=== PATIENT | female | born 1955 | race African-American/Black ===

== ENCOUNTER → 2017-11-08 | Day surgery (SDC) | payer OTHER ==
[~2017-11-08] VITALS: Ht 152.4 cm; Wt 90.7 kg
[~2017-11-08] MED LIST: ASPIRIN EC81 M1 PO; AUGMENTIN 875-1 EACH PO; GABAPENTIN300 M2 PO; IBUPROFEN800 M1 PO; IRBESARTAN-HCT1 EACH PO; KEFLEX500 M1 PO; KLOR-CON 88 ME1 PO; LAMISIL AT30 GM TOP; NEURONTIN300 M1 PO; PERCOCET 5-3251 EACH PO; PREDNISONE50 M1 PO; TRAMADOL HCL50 M1 PO; TYLENOL WITH C1 EACH PO; ULTRAM50 M1 PO; ZOFRAN ODT4 M1 SL
--- NOTE | 2017-11-08 11:34 | Operative Report ---
Operative/Inv Procedure Report Surgery Date: 11/08/17 Name of Procedure: Release carpal tunnel left Pre-Operative Diagnosis: Carpal tunnel syndrome left Post-Operative Diagnosis: Same Estimated Blood Loss: scant Surgeon/Pipe Organ Mechanic Apprentice: Mitesh Mariee MD Anesthesia: moderate sedation Operative/Procedure Note Note: Patient was counseled extensively in regards to the procedure the alternatives the risks and expected outcomes as relates to her request for surgical intervention to treat symptomatic carpal tunnel syndrome. No guarantees were given in regards to results. Patient could be made worse, risk of infection bleeding numbness of the permanent nature in the distribution of the nerve and/ or palm skin. Patient understands no guarantees were given and signed informed consent today. She was brought to the operating room placed supine on the table Venodyne boots were placed sedation was given as well as intravenous antibiotics. The hand was prepped and draped in usual sterile fashion. Palmar incision was placed through the skin subcutaneous tissue and palmar fascia. The transverse carpal ligament was opened under direct vision with no other pathology seen. Wound was irrigated closed and splinted
== END ==
LOC: STS 02:59
DX: G56.02 Carpal tunnel syndrome, left upper limb (principal); I10 Essential (primary) hypertension; J44.9 Chronic obstructive pulmonary disease, unspecified; Z87.891 Personal history of nicotine dependence; I73.9 Peripheral vascular disease, unspecified; G47.33 Obstructive sleep apnea (adult) (pediatric)
CPT/HCPCS: C9399; J0131; J0690; J2250